=== PATIENT | male | born 1945 | race Caucasian/White ===

== ENCOUNTER 2017-07-15 09:06 | Inpatient (IN) | payer MEDICARE, OTHER ==
[2017-07-06 15:50] LABS: BASOPHILS % (AUTO) 0.2 % (0-1); EOSINOPHILS # (AUTO) 0.3 X10'3 (0-0.9); EOSINOPHILS % (AUTO) 5.5 % (0-6); LYMPHOCYTES # (AUTO) 1.4 X10'3 (1.1-4.8); LYMPHOCYTES % (AUTO) 21.7 % (21-51); MEAN CORPUSCULAR HEMOGLOBIN 30.9 PG (27.0-31.0); MEAN CORPUSCULAR HGB CONC 34.8 % (33.0-36.5); MEAN CORPUSCULAR VOLUME 88.6 FL (78-98); MEAN PLATELET VOLUME 7.6 FL (7.4-10.4); MONOCYTES # (AUTO) 0.8 X10'3 (0-0.9); MONOCYTES % (AUTO) 12.5 % (2-12); NEUTROPHILS # (AUTO) 3.8 X10'3 (1.8-7.7); NEUTROPHILS % (AUTO) 60.1 % (42-75); PRE OP HEMATOCRIT 43.8 % (42.0-52.0); PRE OP HEMOGLOBIN 15.3 g/dL (14.0-17.9); PRE OP PLATELET COUNT 198 X10'3 (140-440); RED BLOOD COUNT 4.94 X10'6 (4.70-6.10); RED CELL DISTRIBUTION WIDTH 13.3 % (11.5-14.5)
[2017-07-06 16:06] LABS: ALBUMIN 3.8 G/DL (3.4-5.0); ALKALINE PHOSPHATASE 89 IU/L (46-116); BLOOD UREA NITROGEN 22 MG/DL (7-18); BUN/CREATININE RATIO 27.5 (5.4-32.0); CALCIUM 9.5 MG/DL (8.5-10.1); CHLORIDE 106 MMOL/L (99-107); PRE OP ALT 33 U/L (30-65); PRE OP ANION GAP 4 (8-16); PRE OP AST 25 U/L (10-37); PRE OP BILIRUB, TOTAL 0.5 MG/DL (0.0-1.0); PRE OP GLUCOSE 116 MG/DL (70-104); PRE OP POTASSIUM 4.2 MMOL/L (3.4-5.1); PRE OP SODIUM 139 MMOL/L (135-145); TOTAL CARBON DIOXIDE 28.6 MMOL/L (24-32); TOTAL PROTEIN 7.5 G/DL (6.4-8.2); eGFR > 90 ML/MIN
[~2017-07-15] VITALS: Ht 185.4 cm; Wt 109.4 kg
[2017-07-15] VITALS (15 sets, daily range): BP systolic 112–139; BP diastolic 62–86
[~2017-07-15 09:06] MED LIST: CHOL2000 PO; EZET1TAB26; GLUC1CAP33 PO; MAGN400C PO; MULT-1085 PO; PRAM0.5T3 PO; SAW/1TAB2 PO; VITA150T; VITA400C65; [UNRECOGNIZED DRUG - CODE] PO; acetaminophen 325mg tablet PO ONE; cefazolin/dext.iso 2gm/50ml 50 ML IV ONE; famotidine 20mg tablet PO ONE; gabapentin 300mg capsule PO ONE; metoclopramide 5 mg/ml inj IV ONE; oxyCODONE SR 10mg (sust. release) tab PO ONE; ringers solution, lacted 1,000 ML IV SCH; tranexamic acid inj. 1,000 MG in normal saline 100ml IV soln 90 ML IV ONE; vancomycin inj 1,500 MG in normal saline 300ml IV soln IV ONE
[2017-07-15] MEDS ORDERED: ketorolac trometh. 30mg/ml inj. ONE (10:26)
[2017-07-15] MEDS ORDERED: vancomycin 1,000mg inj ONE (10:26)
[2017-07-15] MEDS ORDERED: MORPHINE SULFATE/PF 0.5 MG/ML 10ML AMPUL ONE ×2 (10:26→12:03)
[2017-07-15] MEDS ORDERED: ROPIVAcaine 0.5% (5mg/ml) 30ml vial ONE ×2 (10:26→12:40)
[2017-07-15] MEDS ORDERED: clindamycin-Cleocin 900mg/D5W 50 ML IV ONE (10:35)
[2017-07-15] MEDS ORDERED: rocuronium 10mg/ml inj IV ONE (12:43)
[2017-07-15] MEDS ORDERED: LIDOcaine 1%/PF (10mg/ml) 5ml vial ONE (12:44)
[2017-07-15] MEDS ORDERED: propofol inj 20 ML IV ONE (12:44)
[2017-07-15] MEDS ORDERED: sevoflurane 250ml liquid IH ONE (13:45)
[2017-07-15] MEDS ORDERED: fentaNYL/PF 50MCG/1 ML 2ML syringe ONE ×2 (13:50→14:46)
[2017-07-15] MEDS ORDERED: ringers solution, lacted 1,000 ML IV SCH (16:02)
[2017-07-15] MEDS ORDERED: morphine 2 MG/ML inj. syringe IV PRN (16:05)
[2017-07-15] MEDS ORDERED: ondansetron/PF 4mg/2ml inj IV PRN ×2 (16:05→17:10)
[2017-07-15] MEDS ORDERED: HYDROmorphone 1 mg/ml syringe IV PRN ×2 (16:05)
[2017-07-15] MEDS ORDERED: dexamethasone sod phosphate 4mg/ml inj. ONE (16:14)
[2017-07-15] MEDS ORDERED: ePHEDrine 50MG/ML INJ. ONE (16:14)
[2017-07-15] MEDS ORDERED: furosemide 40mg/4ml inj ONE (16:40)
[2017-07-15] MEDS ORDERED: acetaminophen 325mg tablet PO PRN (17:10)
[2017-07-15] MEDS ORDERED: bisacodyl 10mg suppository rectal RC PRN (17:10)
[2017-07-15] MEDS ORDERED: magnesium hydroxide 30ml (MOM) UD suspension PO PRN (17:10)
[2017-07-15] MEDS ORDERED: diphenhydrAMINE 25mg capsule PO PRN ×2 (17:10)
[2017-07-15] MEDS ORDERED: cloNIDine hcl/PF 100mcg/ml inj ONE (17:12)
[2017-07-15] MEDS ORDERED: dexamethasone 4mg/ml inj ONE (17:12)
[2017-07-15] MEDS: acetaminophen 325mg tablet PO SCH (19:57)
[2017-07-15] MEDS: oxyCODONE IR 5mg (immed. release) tablet PO PRN (19:58)
[2017-07-15] MEDS: celeCOXIB 100mg capsule PO SCH (19:58)
[2017-07-15] MEDS ORDERED: tranexamic acid inj. 1,000 MG in normal saline 100ml IV soln 100 ML IV ONE (20:00)
[2017-07-15] MEDS ORDERED: vancomycin/NS 1 GM ADD-VANTAGE 250 ML IV SCH (20:00)
[2017-07-15] MEDS: sennosides 8.6mg tablet PO SCH (20:35)
[2017-07-15] MEDS: gabapentin 300mg capsule PO SCH (20:35)
[2017-07-15] MEDS: potassium cl 20mEq in 1/2 NS 1,000 ML IV SCH (22:02)
[2017-07-16] MEDS: clindamycin-Cleocin 900mg/D5W 50 ML IV SCH ×3 (00:06→16:17)
[2017-07-16] MEDS: potassium cl 20mEq in 1/2 NS 1,000 ML IV SCH ×3 (01:10→16:17)
[2017-07-16 02:33] VITALS: BP 111/72
[2017-07-16] MEDS: acetaminophen 325mg tablet PO SCH ×4 (02:50→20:46)
[2017-07-16] MEDS: oxyCODONE IR 5mg (immed. release) tablet PO PRN ×5 (04:17→22:04)
[2017-07-16 05:00] VITALS: BP 122/64
[2017-07-16 06:20] LABS: BASOPHILS % (AUTO) 0 % (0-1); EOSINOPHILS # (AUTO) 0.1 X10'3 (0-0.9); EOSINOPHILS % (AUTO) 1.2 % (0-6); HEMATOCRIT 34.4 % (42.0-52.0); HEMOGLOBIN 11.9 g/dl (14.0-17.9); LYMPHOCYTES # (AUTO) 0.5 X10'3 (1.1-4.8); LYMPHOCYTES % (AUTO) 4.1 % (21-51); MEAN CORPUSCULAR HEMOGLOBIN 30.9 PG (27.0-31.0); MEAN CORPUSCULAR HGB CONC 34.7 % (33.0-36.5); MEAN CORPUSCULAR VOLUME 89.1 FL (78-98); MEAN PLATELET VOLUME 7.8 FL (7.4-10.4); MONOCYTES # (AUTO) 0.8 X10'3 (0-0.9); MONOCYTES % (AUTO) 7.2 % (2-12); NEUTROPHILS # (AUTO) 9.8 X10'3 (1.8-7.7); NEUTROPHILS % (AUTO) 87.5 % (42-75); PLATELET COUNT 168 X10'3 (140-440); RED BLOOD COUNT 3.86 X10'6 (4.70-6.10); RED CELL DISTRIBUTION WIDTH 13.3 % (11.5-14.5); WHITE BLOOD COUNT 11.2 X10'3 (4.5-11.0)
[2017-07-16 06:51] LABS: ANION GAP 11 (8-16); CHLORIDE 108 MMOL/L (99-107); POTASSIUM 4.5 MMOL/L (3.5-5.1); SODIUM 141 MMOL/L (135-145); TOTAL CARBON DIOXIDE 22.4 MMOL/L (24-32)
[2017-07-16] MEDS: celeCOXIB 100mg capsule PO SCH ×2 (08:53→20:45)
[2017-07-16] MEDS: gabapentin 300mg capsule PO SCH ×3 (08:53→20:47)
[2017-07-16] MEDS: enoxaparin 40mg/0.4ml syringe SQ SCH (08:55)
[2017-07-16 10:00] VITALS: BP 115/56
[2017-07-16 14:00] VITALS: BP 133/63
[2017-07-16 18:36] VITALS: BP 112/56
[2017-07-16] MEDS: pramipexole 0.25mg tablet PO SCH (20:46)
[2017-07-16] MEDS: atorvastatin 10mg tablet PO SCH (20:46)
[2017-07-16] MEDS: sennosides 8.6mg tablet PO SCH (20:46)
[2017-07-16] MEDS ORDERED: BETA PO SCH (21:00)
[2017-07-16] MEDS ORDERED: ezetimibe 10mg tablet PO SCH (21:00)
[2017-07-16] MEDS ORDERED: PYG PO SCH (21:00)
[2017-07-16] MEDS ORDERED: LYC PO SCH (21:00)
[2017-07-16] MEDS ORDERED: VIT E PO SCH (21:00)
[2017-07-16] MEDS ORDERED: SOD SEL PO SCH (21:00)
[2017-07-16] MEDS ORDERED: SAW PO SCH (21:00)
[2017-07-16 22:00] VITALS: BP 128/66
[2017-07-17] MEDS: acetaminophen 325mg tablet PO SCH ×3 (02:00→13:46)
[2017-07-17] MEDS: oxyCODONE IR 5mg (immed. release) tablet PO PRN ×4 (05:35→20:26)
[2017-07-17 05:54] LABS: BASOPHILS % (AUTO) 0.2 % (0-1); EOSINOPHILS # (AUTO) 0.3 X10'3 (0-0.9); HEMATOCRIT 33.2 % (42.0-52.0); HEMOGLOBIN 11.5 g/dl (14.0-17.9); LYMPHOCYTES # (AUTO) 0.6 X10'3 (1.1-4.8); LYMPHOCYTES % (AUTO) 9.7 % (21-51); MEAN CORPUSCULAR HEMOGLOBIN 30.9 PG (27.0-31.0); MEAN CORPUSCULAR HGB CONC 34.6 % (33.0-36.5); MEAN CORPUSCULAR VOLUME 89.5 FL (78-98); MEAN PLATELET VOLUME 7.6 FL (7.4-10.4); MONOCYTES # (AUTO) 0.7 X10'3 (0-0.9); MONOCYTES % (AUTO) 10.8 % (2-12); NEUTROPHILS # (AUTO) 4.5 X10'3 (1.8-7.7); NEUTROPHILS % (AUTO) 74.3 % (42-75); PLATELET COUNT 166 X10'3 (140-440); RED CELL DISTRIBUTION WIDTH 13.6 % (11.5-14.5); WHITE BLOOD COUNT 6.1 X10'3 (4.5-11.0)
[2017-07-17 06:00] VITALS: BP 114/48
[2017-07-17] MEDS: vitamin B comp w/Vit. C tab 1 TAB TABLET PO SCH (07:58)
[2017-07-17] MEDS: celeCOXIB 100mg capsule PO SCH ×2 (07:58→20:26)
[2017-07-17] MEDS: multivitamins, therapeutics tablet PO SCH (07:58)
[2017-07-17] MEDS: vitamin D (cholecalciferol) 1,000 unit tablet PO SCH (07:58)
[2017-07-17] MEDS: magnesium oxide 400mg tablet PO SCH (07:58)
[2017-07-17] MEDS: pramipexole 0.25mg tablet PO SCH ×2 (07:59→20:27)
[2017-07-17] MEDS: vitamin E 400 unit capsule PO SCH (07:59)
[2017-07-17] MEDS ORDERED: vitamin B comp w/Vit. C tab 1 TAB TABLET PO SCH (08:00)
[2017-07-17] MEDS ORDERED: vitamin E 400 unit capsule PO SCH (08:00)
[2017-07-17] MEDS: enoxaparin 40mg/0.4ml syringe SQ SCH (08:00)
[2017-07-17] MEDS: gabapentin 300mg capsule PO SCH ×3 (08:04→20:26)
[2017-07-17 10:11] VITALS: BP 129/52
[2017-07-17] MEDS ORDERED: acetaminophen 325mg tablet PO PRN (17:10)
[2017-07-17 18:00] VITALS: BP 123/71
[2017-07-17] MEDS: atorvastatin 10mg tablet PO SCH (20:26)
[2017-07-17] MEDS: ezetimibe 10mg tablet PO SCH (20:26)
[2017-07-17] MEDS: sennosides 8.6mg tablet PO SCH (20:27)
[2017-07-17] MEDS ORDERED: SOD SEL PO SCH (21:00)
[2017-07-17] MEDS ORDERED: BETA PO SCH (21:00)
[2017-07-17] MEDS ORDERED: SAW PO SCH (21:00)
[2017-07-17] MEDS ORDERED: PYG PO SCH (21:00)
[2017-07-17] MEDS ORDERED: VIT E PO SCH (21:00)
[2017-07-17] MEDS ORDERED: LYC PO SCH (21:00)
[2017-07-17 22:00] VITALS: BP 138/65
[2017-07-18] MEDS: oxyCODONE IR 5mg (immed. release) tablet PO PRN ×5 (05:50→22:25)
[2017-07-18 06:00] VITALS: BP 119/62
[2017-07-18 06:05] LABS: BASOPHILS % (AUTO) 0.3 % (0-1); EOSINOPHILS # (AUTO) 0.6 X10'3 (0-0.9); EOSINOPHILS % (AUTO) 8.3 % (0-6); HEMATOCRIT 35.2 % (42.0-52.0); HEMOGLOBIN 12.1 g/dl (14.0-17.9); LYMPHOCYTES # (AUTO) 0.9 X10'3 (1.1-4.8); LYMPHOCYTES % (AUTO) 11.5 % (21-51); MEAN CORPUSCULAR HEMOGLOBIN 30.9 PG (27.0-31.0); MEAN CORPUSCULAR HGB CONC 34.5 % (33.0-36.5); MEAN CORPUSCULAR VOLUME 89.6 FL (78-98); MEAN PLATELET VOLUME 7.9 FL (7.4-10.4); MONOCYTES # (AUTO) 0.9 X10'3 (0-0.9); MONOCYTES % (AUTO) 11.9 % (2-12); NEUTROPHILS # (AUTO) 5.1 X10'3 (1.8-7.7); PLATELET COUNT 180 X10'3 (140-440); RED BLOOD COUNT 3.93 X10'6 (4.70-6.10); RED CELL DISTRIBUTION WIDTH 13.5 % (11.5-14.5); WHITE BLOOD COUNT 7.5 X10'3 (4.5-11.0)
[2017-07-18] MEDS: vitamin D (cholecalciferol) 1,000 unit tablet PO SCH (07:50)
[2017-07-18] MEDS: vitamin B comp w/Vit. C tab 1 TAB TABLET PO SCH (07:50)
[2017-07-18] MEDS: gabapentin 300mg capsule PO SCH ×3 (07:50→20:50)
[2017-07-18] MEDS: celeCOXIB 100mg capsule PO SCH ×2 (07:50→20:50)
[2017-07-18] MEDS: multivitamins, therapeutics tablet PO SCH (07:50)
[2017-07-18] MEDS: pramipexole 0.25mg tablet PO SCH ×2 (07:50→20:51)
[2017-07-18] MEDS: vitamin E 400 unit capsule PO SCH (07:50)
[2017-07-18] MEDS: enoxaparin 40mg/0.4ml syringe SQ SCH (07:51)
[2017-07-18] MEDS: magnesium oxide 400mg tablet PO SCH (07:52)
[2017-07-18 10:00] VITALS: BP 120/66
[2017-07-18] MEDS ORDERED: ENOX40DI11 SQ (10:40)
[2017-07-18 18:00] VITALS: BP 115/61
[2017-07-18] MEDS: sennosides 8.6mg tablet PO SCH (20:50)
[2017-07-18] MEDS: ezetimibe 10mg tablet PO SCH (20:50)
[2017-07-18] MEDS: atorvastatin 10mg tablet PO SCH (20:50)
[2017-07-18 22:00] VITALS: BP 132/69
[2017-07-19] MEDS: oxyCODONE IR 5mg (immed. release) tablet PO PRN (02:50)
[2017-07-19 07:00] VITALS: BP 129/66
[2017-07-19] MEDS: celeCOXIB 100mg capsule PO SCH (08:06)
[2017-07-19] MEDS: pramipexole 0.25mg tablet PO SCH (08:06)
[2017-07-19] MEDS: magnesium oxide 400mg tablet PO SCH (08:07)
[2017-07-19] MEDS: gabapentin 300mg capsule PO SCH (08:07)
[2017-07-19] MEDS: vitamin B comp w/Vit. C tab 1 TAB TABLET PO SCH (08:07)
[2017-07-19] MEDS: multivitamins, therapeutics tablet PO SCH (08:07)
[2017-07-19] MEDS: vitamin D (cholecalciferol) 1,000 unit tablet PO SCH (08:07)
[2017-07-19] MEDS: vitamin E 400 unit capsule PO SCH (08:07)
[2017-07-19 11:00] VITALS: BP 135/72
[2017-07-20] MEDS ORDERED: CEPH500C5 PO (14:37)
== END 2017-07-19 14:05 | disposition home or self-care (01) | DRG 467 ==
LOC: PAS IN 09:06 → EDSTATUS 13:00 → ORTHO 4S 18:45
PROVIDERS: ADMIT Orthopaedic Surgery; ATTEND Orthopaedic Surgery
PROC: 0SRC069 Replacement of Right Knee Joint with Oxidized Zirconium on Polyethylene Synthetic Substitute, Cemented, Open Approach (ICD-10-PCS; 2017-07-15)
PROC: 8E0Y0CZ Robotic Assisted Procedure of Lower Extremity, Open Approach (ICD-10-PCS; 2017-07-15)
PROC: 0SPC0JZ Removal of Synthetic Substitute from Right Knee Joint, Open Approach (ICD-10-PCS; principal; 2017-07-15 13:40)
DX: T84.032A Mechanical loosening of internal right knee prosthetic joint, initial encounter (principal); D62 Acute posthemorrhagic anemia; M17.11 Unilateral primary osteoarthritis, right knee; M65.9 Synovitis and tenosynovitis, unspecified; G25.81 Restless legs syndrome; Y82.8 Other medical devices associated with adverse incidents; Y92.89 Other specified places as the place of occurrence of the external cause
CPT/HCPCS: 36415; 73560; 80051; 80053; 85025; 87070; 97110; 97116; 97161; 97530; 97535; A6253; A6255; A6449; A6455; A7000; C1713; C1758; C1776; C9250; J0690; J0735; J1100; J1650; J1885; J1940; J2001; J2270; J2274; J2704; J2765; J2795; J3010; J3370; J3490; J7030; J7120; Q0163

== ENCOUNTER 2017-07-20 11:24 | Emergency (ER) | payer MEDICARE, OTHER ==
[~2017-07-20] VITALS: Ht 185.4 cm; Wt 109.0 kg
[~2017-07-20 11:24] MED LIST changes: +ENOX40DI11 SQ; -acetaminophen 325mg tablet PO ONE; -cefazolin/dext.iso 2gm/50ml 50 ML IV ONE; -famotidine 20mg tablet PO ONE; -gabapentin 300mg capsule PO ONE; -metoclopramide 5 mg/ml inj IV ONE; -oxyCODONE SR 10mg (sust. release) tab PO ONE; -ringers solution, lacted 1,000 ML IV SCH; -tranexamic acid inj. 1,000 MG in normal saline 100ml IV soln 90 ML IV ONE; -vancomycin inj 1,500 MG in normal saline 300ml IV soln IV ONE
[2017-07-20 12:55] LABS: BASOPHILS % (AUTO) 0.2 % (0-1); EOSINOPHILS # (AUTO) 0.5 X10'3 (0-0.9); EOSINOPHILS % (AUTO) 6.6 % (0-6); HEMATOCRIT 37.4 % (42.0-52.0); LYMPHOCYTES # (AUTO) 0.9 X10'3 (1.1-4.8); LYMPHOCYTES % (AUTO) 13.1 % (21-51); MEAN CORPUSCULAR HEMOGLOBIN 30.8 PG (27.0-31.0); MEAN CORPUSCULAR HGB CONC 34.7 % (33.0-36.5); MEAN CORPUSCULAR VOLUME 88.6 FL (78-98); MEAN PLATELET VOLUME 7.4 FL (7.4-10.4); MONOCYTES # (AUTO) 1.2 X10'3 (0-0.9); MONOCYTES % (AUTO) 16.9 % (2-12); NEUTROPHILS # (AUTO) 4.4 X10'3 (1.8-7.7); NEUTROPHILS % (AUTO) 63.2 % (42-75); PLATELET COUNT 216 X10'3 (140-440); RED BLOOD COUNT 4.22 X10'6 (4.70-6.10); RED CELL DISTRIBUTION WIDTH 13.4 % (11.5-14.5)
[2017-07-20 13:13] LABS: ALANINE AMINOTRANSFERASE 69 U/L (12-78); ALBUMIN 3.1 G/DL (3.4-5.0); ALBUMIN/GLOBULIN RATIO 0.7 (1.1-1.5); ALKALINE PHOSPHATASE 172 IU/L (46-116); ANION GAP 7 (8-16); ASPARTATE AMINO TRANSFERASE 51 U/L (10-37); BILIRUBIN,TOTAL 0.8 MG/DL (0.1-1.0); BLOOD UREA NITROGEN 23 MG/DL (7-18); BUN/CREATININE RATIO 27.1 (5.4-32.0); CALCIUM 9.1 MG/DL (8.5-10.1); CHLORIDE 104 MMOL/L (99-107); CREATININE 0.85 MG/DL (0.60-1.10); GLUCOSE 82 MG/DL (70-104); POTASSIUM 4.1 MMOL/L (3.5-5.1); SODIUM 139 MMOL/L (135-145); TOTAL PROTEIN 7.4 G/DL (6.4-8.2); eGFR 89 ML/MIN
[2017-07-20] MEDS ORDERED: CEPH500C5 PO (14:37)
[2017-07-20] MEDS ORDERED: morphine 5 MG/ML injection IV ONE (15:05)
[2017-07-20 16:15] VITALS: BP 115/70
== END 2017-07-20 16:16 | disposition home or self-care (01) ==
LOC: ER 11:24
DX: L03.115 Cellulitis of right lower limb (principal); I77.6 Arteritis, unspecified; G89.29 Other chronic pain; Z98.890 Other specified postprocedural states; Z88.0 Allergy status to penicillin; Z79.899 Other long term (current) drug therapy
CPT/HCPCS: 36415; 80053; 85025; 85651; 86140; 93971; 96374; 99285; A6255; A6446; A6449

== ENCOUNTER 2018-03-09 15:39 | Emergency (ER) | payer MEDICARE, OTHER ==
[~2018-03-09] VITALS: Ht 185.4 cm; Wt 113.0 kg
[~2018-03-09 15:39] MED LIST changes: +CEPH500C5 PO
[2018-03-09 15:42] VITALS: BP 140/78
== END 2018-03-09 16:29 | disposition home or self-care (01) ==
LOC: ER 15:39
DX: S91.312A Laceration without foreign body, left foot, initial encounter (principal); G89.29 Other chronic pain; Z91.040 Latex allergy status; Z88.0 Allergy status to penicillin; Z88.8 Allergy status to other drugs, medicaments and biological substances; Z79.2 Long term (current) use of antibiotics; Z79.899 Other long term (current) drug therapy; X58.XXXA Exposure to other specified factors, initial encounter; Y93.89 Activity, other specified; Y92.89 Other specified places as the place of occurrence of the external cause; Y99.8 Other external cause status
CPT/HCPCS: 12001; 99283

== ENCOUNTER 2021-08-19 14:15 | Inpatient (IN) | payer MEDICARE, OTHER ==
[~2021-08-19] VITALS: Ht 185.4 cm; Wt 102.0 kg
[~2021-08-19 14:15] MED LIST changes: -CEPH500C5 PO; -ENOX40DI11 SQ; -EZET1TAB26; -PRAM0.5T3 PO; +VITA-134 PO; -VITA150T; +VITA150T PO; -VITA400C65; -[UNRECOGNIZED DRUG - CODE] PO
[2021-09-25] MEDS ORDERED: TURM500C4 PO (11:22)
[2021-09-25] MEDS ORDERED: LIPA1CAP18 PO (11:22)
[2021-09-25] MEDS ORDERED: MELA10TA PO (11:22)
[2021-09-25] MEDS ORDERED: LORA10CA PO (11:22)
[2021-09-25] MEDS ORDERED: EZET10TA48 PO (11:22)
[2021-09-25] MEDS ORDERED: SIMV10TA98 PO (11:22)
[2021-09-25] MEDS ORDERED: FLO0.4C PO (11:22)
[2021-09-25] MEDS ORDERED: KRIL1CAP21 PO (11:22)
[2021-09-25] MEDS ORDERED: VIT1LOZE5 (11:22)
[2021-09-25 11:50] LABS: BASOPHILS % (AUTO) 0.5 % (0-1); EOSINOPHILS # (AUTO) 0.2 X10'3 (0-0.9); EOSINOPHILS % (AUTO) 3.5 % (0-6); LYMPHOCYTES # (AUTO) 1.1 X10'3 (1.1-4.8); LYMPHOCYTES % (AUTO) 23.8 % (21-51); MEAN CORPUSCULAR HGB CONC 33.1 g/dL (33.0-36.5); MEAN CORPUSCULAR VOLUME 90.6 FL (78-98); MEAN PLATELET VOLUME 7.6 FL (7.4-10.4); MONOCYTES # (AUTO) 0.6 X10'3 (0-0.9); MONOCYTES % (AUTO) 12.7 % (2-12); NEUTROPHILS # (AUTO) 2.9 X10'3 (1.8-7.7); NEUTROPHILS % (AUTO) 59.5 % (42-75); PRE OP HEMATOCRIT 39.5 % (42.0-52.0); PRE OP HEMOGLOBIN 13.1 g/dL (14.0-17.9); PRE OP PLATELET COUNT 222 X10'3 (140-440); RED BLOOD COUNT 4.37 X10'6 (4.70-6.10)
[2021-09-25 12:31] LABS: ALBUMIN 3.7 G/DL (3.4-5.0); ALBUMIN/GLOBULIN RATIO 1.2 (1.1-1.5); ALKALINE PHOSPHATASE 75 IU/L (46-116); BLOOD UREA NITROGEN 21 MG/DL (7-18); BUN/CREATININE RATIO 25.3 (5.4-32.0); CALCIUM 8.8 MG/DL (8.5-10.1); CHLORIDE 108 MMOL/L (99-107); CREATININE 0.83 MG/DL (0.60-1.10); PRE OP ALT 24 U/L (30-65); PRE OP ANION GAP 8 (8-16); PRE OP AST 24 U/L (10-37); PRE OP BILIRUB, TOTAL 0.6 MG/DL (0.0-1.0); PRE OP GLUCOSE 103 MG/DL (70-104); PRE OP POTASSIUM 4.1 MMOL/L (3.4-5.1); PRE OP SODIUM 142 MMOL/L (135-145); TOTAL CARBON DIOXIDE 25.8 MMOL/L (24-32); TOTAL PROTEIN 6.9 G/DL (6.4-8.2); eGFR 90 ML/MIN
[2021-09-30] MEDS ORDERED: PRAM0.253 PO (11:02)
[2021-09-30] MEDS ORDERED: ELUX75TA PO (12:41)
[2021-10-01] VITALS (18 sets, daily range): BP systolic 116–135; BP diastolic 54–77
[2021-10-01] MEDS ORDERED: ringers solution, lacted 1,000 ML IV SCH ×2 (05:00→15:50)
[2021-10-01] MEDS ORDERED: tranexamic acid 650mg tablet PO ONE (05:30)
[2021-10-01] MEDS ORDERED: vancomycin 1,500 MG in NS 300ml IV soln IV ONE (05:30)
[2021-10-01] MEDS ORDERED: famotidine 20mg tablet PO ONE (05:30)
[2021-10-01] MEDS ORDERED: cefazolin/dext.iso 2gm/50ml IV ONE (05:30)
--- NOTE | 2021-10-01 11:31 | NUR ---
CSM INTACT, PATIENT JOINT CARE VIDEO AND VERBALIZED UNDERSTANDING.
[2021-10-01] MEDS ORDERED: ROPIVAcaine 0.5% (5mg/ml) 30ml vial ONE ×2 (13:13→13:46)
[2021-10-01] MEDS ORDERED: ketorolac trometh. 30mg/ml inj. ONE (13:13)
[2021-10-01] MEDS ORDERED: midazolam 1 mg/ML 2ml injection ONE (13:45)
[2021-10-01] MEDS ORDERED: fentaNYL/PF 50MCG/1 ML 2ML syringe ONE (13:45)
[2021-10-01] MEDS ORDERED: LIDOCAINE 1% w/preservative (10 MG/ML) inj. 10mL VIAL ONE (14:03)
[2021-10-01] MEDS ORDERED: sevoflurane 250ml liquid IH ONE (14:03)
[2021-10-01] MEDS ORDERED: propofol inj 20 ML IV ONE (14:12)
[2021-10-01] MEDS ORDERED: dexamethasone sod phosphate 4mg/ml inj. ONE (15:02)
[2021-10-01] MEDS ORDERED: ePHEDrine 50MG/ML INJ. ONE (15:03)
[2021-10-01] MEDS ORDERED: ondansetron/PF 4mg/2ml inj ONE (15:03)
[2021-10-01] MEDS ORDERED: proCHLORperazine 10 MG/2 ml inj IV PRN (15:50)
[2021-10-01] MEDS ORDERED: meperidine/PF 25mg/ml syringe IV PRN ×3 (15:50)
[2021-10-01] MEDS ORDERED: morphine 2 MG/ML inj. syringe IV PRN (15:50)
[2021-10-01] MEDS ORDERED: ROPIVAcaine 0.2%/PF PUMP/bolus 545 ML INTERSCALE SCH (15:50)
[2021-10-01] MEDS ORDERED: ondansetron/PF 4mg/2ml inj IV PRN ×2 (15:50→16:45)
[2021-10-01] MEDS ORDERED: morphine 4 MG/ML inj SYRINge IV PRN (15:50)
[2021-10-01] MEDS ORDERED: ROPIVAcaine 0.2% (10 MG/5 ML) BOLUS INJECTION INTERSCALE PRN (15:50)
--- NOTE | 2021-10-01 16:29 | NUR ---
Received from OR via hospital bed, accompanied by Anesthesiologist DR HUERTA and report given by Anesthesiolgist. PT PRESENTS WITH 20G LEFT FOREARM, [id number] SHOULDER WRAP WITH ISLAND DRESSING, POWDER PACK AND ON-Q ADRIANNE BAIRD. Addendum: 10/01/21 at 1638 by Sayda Boyer RN, RN Amended: Links added.
[2021-10-01] MEDS ORDERED: magnesium hydroxide 30ml (MOM) UD suspension PO PRN (16:45)
[2021-10-01] MEDS ORDERED: oxyCODONE IR 5mg (immed. release) tablet PO PRN (16:45)
[2021-10-01] MEDS ORDERED: diphenhydrAMINE 25mg capsule PO PRN ×2 (16:45)
[2021-10-01] MEDS ORDERED: HYDROmorphone 1 mg/ml syringe IV PRN (16:45)
[2021-10-01] MEDS ORDERED: acetaminophen 325mg tablet PO PRN (16:45)
[2021-10-01] MEDS ORDERED: HYDROcodone/acetaminophen 10/325mg tab PO PRN (16:45)
[2021-10-01] MEDS ORDERED: naloxone 0.4 mg/ml inj IV PRN (16:45)
[2021-10-01] MEDS ORDERED: HYDROmorphone inj. 0.5 MG/0.5 ML DISP.SYRIN IV PRN (16:45)
[2021-10-01] MEDS ORDERED: bisacodyl 10mg suppository rectal RC PRN (16:45)
--- NOTE | 2021-10-01 17:49 | NUR ---
PT DOING WELL, VSS, DENIES PAIN, ABLE TO MOVE FINGERS, PINK AND WARM, PULSES PRESENT-BLOCK STILL WORKING, ARM IN SLING, ON-Q ATTACHED-PT EDUCATED ON USE, SCDS ON, TOLERATING FLUIDS-READY FOR DINNER, SHOULDER WRAP WITH ICE PACK IN PLACE-CDI, NO OTHER CHANGES IN ASSESSMENT, REPORT CALLED TO YADIRA MCDANIEL-ALL QUESTIONS ANSWERED, TAKEN WITH ALL BELONGINGS TO ROOM 4024A-HOOKED UP TO MONITORS, CALL LIGHT IN REACH, BED LOW AND LOCKED, RN AWARE OF ARRIVAL.
--- NOTE | 2021-10-01 18:15 | NUR ---
Gave report to VIOLETA Adame
[2021-10-01] MEDS: magnesium oxide 400mg tablet PO SCH (19:28)
[2021-10-01] MEDS: acetaminophen 325mg tablet PO SCH (19:33)
[2021-10-01] MEDS: cholecalciferol (vitamin D3) 1,000 unit (25mcg) tablet PO SCH (19:34)
[2021-10-01] MEDS: potassium cl 20mEq in 1/2 NS 1,000 ML IV SCH (19:44)
[2021-10-01] MEDS ORDERED: CHONDROITIN SULFATE A PO SCH (20:00)
[2021-10-01] MEDS ORDERED: GLUC SU PO SCH (20:00)
[2021-10-01] MEDS ORDERED: vancomycin/NS 1 GM ADD-VANTAGE 250 ML IV SCH (20:00)
[2021-10-01] MEDS: LIPASE/PROTEASE/AMYLASE 4,200 unit CAPSULE.DR PO SCH (20:43)
[2021-10-01] MEDS: LIPASE/PROTEASE/AMYLASE 16,800 UNIT CAPSULE.DR PO SCH (20:43)
[2021-10-01] MEDS: Melatonin 3mg tablet PO SCH (20:45)
[2021-10-01] MEDS: sennosides 8.6mg tablet PO SCH (20:46)
[2021-10-01] MEDS: pramipexole 0.25mg tablet PO SCH (20:50)
[2021-10-01] MEDS ORDERED: BETA PO SCH (21:00)
[2021-10-01] MEDS ORDERED: VIT E PO SCH (21:00)
[2021-10-01] MEDS ORDERED: PYG PO SCH (21:00)
[2021-10-01] MEDS ORDERED: SOD SEL PO SCH (21:00)
[2021-10-01] MEDS ORDERED: pramipexole 0.25mg tablet PO SCH (21:00)
[2021-10-01] MEDS ORDERED: LYC PO SCH (21:00)
[2021-10-01] MEDS ORDERED: SAW PO SCH (21:00)
[2021-10-02] MEDS: ceFAZolin/D5W- 1GM premix 50 ML IV SCH ×2 (00:47→08:27)
[2021-10-02] MEDS: potassium cl 20mEq in 1/2 NS 1,000 ML IV SCH ×3 (00:49→16:45)
[2021-10-02] MEDS: acetaminophen 325mg tablet PO SCH ×4 (01:58→20:39)
[2021-10-02 02:00] VITALS: BP 123/62
--- NOTE | 2021-10-02 06:19 | NUR ---
Received report from Wendi MCDANIEL
[2021-10-02 06:38] VITALS: BP 104/56
[2021-10-02 06:57] LABS: BASOPHILS % (AUTO) 0.1 % (0-1); EOSINOPHILS % (AUTO) 0 % (0-6); HEMATOCRIT 36.1 % (42.0-52.0); HEMOGLOBIN 12.2 g/dl (14.0-17.9); LYMPHOCYTES # (AUTO) 0.5 X10'3 (1.1-4.8); MEAN CORPUSCULAR HEMOGLOBIN 30.7 PG (27.0-31.0); MEAN CORPUSCULAR HGB CONC 33.9 g/dL (33.0-36.5); MEAN CORPUSCULAR VOLUME 90.5 FL (78-98); MEAN PLATELET VOLUME 8.3 FL (7.4-10.4); MONOCYTES # (AUTO) 0.4 X10'3 (0-0.9); MONOCYTES % (AUTO) 4.8 % (2-12); NEUTROPHILS # (AUTO) 7.1 X10'3 (1.8-7.7); NEUTROPHILS % (AUTO) 89.1 % (42-75); PLATELET COUNT 175 X10'3 (140-440); RED BLOOD COUNT 3.99 X10'6 (4.70-6.10); RED CELL DISTRIBUTION WIDTH 13.5 % (11.5-14.5)
[2021-10-02 07:11] LABS: ANION GAP 9 (8-16); CHLORIDE 108 MMOL/L (99-107); POTASSIUM 4.5 MMOL/L (3.5-5.1); SODIUM 141 MMOL/L (135-145); TOTAL CARBON DIOXIDE 23.6 MMOL/L (24-32)
[2021-10-02] MEDS ORDERED: DHA PO SCH (08:00)
[2021-10-02] MEDS ORDERED: KRILL PO SCH (08:00)
[2021-10-02] MEDS ORDERED: PHOSPHO PO SCH (08:00)
[2021-10-02] MEDS ORDERED: AST PO SCH (08:00)
[2021-10-02] MEDS ORDERED: [UNRECOGNIZED DRUG - OTHER] PO SCH (08:00)
[2021-10-02] MEDS ORDERED: EPA PO SCH (08:00)
[2021-10-02] MEDS: vitamin B comp w/Vit. C tab 1 TAB TABLET PO SCH (08:27)
[2021-10-02] MEDS: aspirin 325mg tablet PO SCH (08:27)
[2021-10-02] MEDS: multivitamins, therapeutics tablet PO SCH (08:28)
[2021-10-02] MEDS: cholecalciferol (vitamin D3) 1,000 unit (25mcg) tablet PO SCH ×2 (08:28→20:38)
[2021-10-02] MEDS: LIPASE/PROTEASE/AMYLASE 16,800 UNIT CAPSULE.DR PO SCH ×3 (08:29→20:34)
[2021-10-02] MEDS: ezetimibe 10mg tablet PO SCH (08:29)
[2021-10-02] MEDS: atorvastatin 10mg tablet PO SCH (08:29)
[2021-10-02] MEDS: LIPASE/PROTEASE/AMYLASE 4,200 unit CAPSULE.DR PO SCH ×3 (08:30→20:34)
[2021-10-02] MEDS: magnesium oxide 400mg tablet PO SCH ×2 (08:30→20:35)
[2021-10-02] MEDS: loratadine 10mg tablet PO SCH (08:31)
[2021-10-02] MEDS: tamsulosin 0.4mg capsule PO SCH (08:31)
[2021-10-02 10:45] VITALS: BP 120/50
[2021-10-02 14:46] VITALS: BP 126/54
[2021-10-02] MEDS: oxyCODONE IR 5mg (immed. release) tablet PO PRN ×2 (16:48→22:28)
[2021-10-02 18:00] VITALS: BP 157/66
--- NOTE | 2021-10-02 18:32 | NUR ---
Report given to VIOLETA Adame
[2021-10-02] MEDS: ELUXADOLINE PO SCH (20:00)
[2021-10-02] MEDS: celeCOXIB 100mg capsule PO SCH (20:35)
[2021-10-02] MEDS: sennosides 8.6mg tablet PO SCH (20:37)
[2021-10-02] MEDS: pramipexole 0.25mg tablet PO SCH (20:38)
[2021-10-02] MEDS: Melatonin 3mg tablet PO SCH (20:39)
[2021-10-02 22:00] VITALS: BP 123/57
[2021-10-03] MEDS: acetaminophen 325mg tablet PO SCH ×3 (02:30→14:00)
[2021-10-03] MEDS: oxyCODONE IR 5mg (immed. release) tablet PO PRN (05:20)
[2021-10-03 06:17] VITALS: BP 131/64
--- NOTE | 2021-10-03 06:17 | NUR ---
Received report from VIOLETA Adame
[2021-10-03 06:36] LABS: BASOPHILS % (AUTO) 0.4 % (0-1); EOSINOPHILS % (AUTO) 0.5 % (0-6); HEMATOCRIT 36.8 % (42.0-52.0); HEMOGLOBIN 12.5 g/dl (14.0-17.9); LYMPHOCYTES # (AUTO) 1.3 X10'3 (1.1-4.8); LYMPHOCYTES % (AUTO) 14.3 % (21-51); MEAN CORPUSCULAR HEMOGLOBIN 31.1 PG (27.0-31.0); MEAN CORPUSCULAR HGB CONC 33.9 g/dL (33.0-36.5); MEAN CORPUSCULAR VOLUME 91.5 FL (78-98); MEAN PLATELET VOLUME 8.3 FL (7.4-10.4); MONOCYTES # (AUTO) 1.1 X10'3 (0-0.9); MONOCYTES % (AUTO) 11.8 % (2-12); NEUTROPHILS # (AUTO) 6.6 X10'3 (1.8-7.7); PLATELET COUNT 207 X10'3 (140-440); RED BLOOD COUNT 4.03 X10'6 (4.70-6.10); RED CELL DISTRIBUTION WIDTH 13.5 % (11.5-14.5); WHITE BLOOD COUNT 9.1 X10'3 (4.5-11.0)
[2021-10-03] MEDS: tamsulosin 0.4mg capsule PO SCH (07:45)
[2021-10-03] MEDS: loratadine 10mg tablet PO SCH (07:45)
[2021-10-03] MEDS: celeCOXIB 100mg capsule PO SCH (07:45)
[2021-10-03] MEDS: atorvastatin 10mg tablet PO SCH (07:46)
[2021-10-03] MEDS: LIPASE/PROTEASE/AMYLASE 4,200 unit CAPSULE.DR PO SCH ×2 (07:49→12:52)
[2021-10-03] MEDS: LIPASE/PROTEASE/AMYLASE 16,800 UNIT CAPSULE.DR PO SCH ×2 (07:49→12:52)
[2021-10-03] MEDS: magnesium oxide 400mg tablet PO SCH (07:50)
[2021-10-03] MEDS: vitamin B comp w/Vit. C tab 1 TAB TABLET PO SCH (07:52)
[2021-10-03] MEDS: multivitamins, therapeutics tablet PO SCH (07:53)
[2021-10-03] MEDS: cholecalciferol (vitamin D3) 1,000 unit (25mcg) tablet PO SCH (07:53)
[2021-10-03] MEDS: ezetimibe 10mg tablet PO SCH (07:54)
[2021-10-03] MEDS: aspirin 325mg tablet PO SCH (07:55)
[2021-10-03] MEDS: ELUXADOLINE PO SCH (07:56)
[2021-10-03 10:00] VITALS: BP 115/55
--- NOTE | 2021-10-03 11:33 | NUR ---
Placed call to Dr. Sandoval regarding discharge, he did not respond. Voicemail left
--- NOTE | 2021-10-03 15:27 | NUR ---
Patient discharged to home via wheelchair to private vehicle. All discharge instructions given to both patient and which included medications, wound care and follow up. They both voiced understanding of all instructions given to them. 18 gauge IV removed from left arm cannula intact no complications. Patient is to follow up in office with Dr. Sandoval and was set up with medications prior to elective surgery.
[2021-10-03] MEDS ORDERED: acetaminophen 325mg tablet PO PRN (16:45)
== END 2021-10-03 15:05 | disposition home or self-care (01) | DRG 483 ==
LOC: PAS IN 10-01 10:35 → ORTHO 4S 10-01 18:02
PROVIDERS: ADMIT Orthopaedic Surgery; ATTEND Orthopaedic Surgery
PROC: 0LS30ZZ Reposition Right Upper Arm Tendon, Open Approach (ICD-10-PCS; 2021-10-01)
PROC: 3E0T3BZ Introduction of Anesthetic Agent into Peripheral Nerves and Plexi, Percutaneous Approach (ICD-10-PCS; 2021-10-01)
PROC: 3E0T33Z Introduction of Anti-inflammatory into Peripheral Nerves and Plexi, Percutaneous Approach (ICD-10-PCS; 2021-10-01)
PROC: 0RRJ00Z Replacement of Right Shoulder Joint with Reverse Ball and Socket Synthetic Substitute, Open Approach (ICD-10-PCS; principal; 2021-10-01 14:03)
DX: M19.011 Primary osteoarthritis, right shoulder (principal); M65.811 Other synovitis and tenosynovitis, right shoulder; M75.101 Unspecified rotator cuff tear or rupture of right shoulder, not specified as traumatic
CPT/HCPCS: 36415; 80051; 80053; 82948; 85025; 87081; 97110; 97161; 97530; A4618; A7000; C1776; G0378; J0690; J1100; J1885; J2250; J2405; J2704; J2795; J3010; J3370; J3480; J3490; J7040; J7120; Q0163; U0003; U0005

== ENCOUNTER 2023-05-22 20:16 | Inpatient (IN) | payer MEDICARE, OTHER ==
[~2023-05-22] VITALS: Ht 185.4 cm; Wt 90.0 kg
[~2023-05-22 20:16] MED LIST changes: +ASPI-1174 PO; +CEPH-585 PO; +CIPR750T14 PO; +EZET10TA48 PO; +FLO0.4C PO; +GUAI120L55 PO; +KRIL1CAP21 PO; +LIPA1CAP18 PO; +LORA10CA PO; +MELATONIN10 MG PO; +METH-797 PO; +METR-159 PO; +OMEP40CA21 PO; +ONDA-103 PO; +OXYC5TAB2; +PRAM0.253 PO; +SIMV10TA98 PO; +SULF1TAB45 PO; +TRIA15CR62 TOP; +TURM500C4 PO; +VIT1LOZE5; -VITA-134 PO; +VITA-288 PO
[2023-05-22] MEDS ORDERED: temazepam 15mg capsule PO PRN (21:00)
[2023-05-22 21:52] LABS: BASOPHILS # (AUTO) 0.1 X10'3 (0-0.2); BASOPHILS % (AUTO) 1.7 % (0-1); EOSINOPHILS # (AUTO) 0.5 X10'3 (0-0.9); EOSINOPHILS % (AUTO) 7.7 % (0-6); HEMOGLOBIN 7.1 g/dl (14.0-17.9); LYMPHOCYTES % (AUTO) 15.1 % (21-51); MEAN CORPUSCULAR HEMOGLOBIN 30.7 PG (27.0-31.0); MEAN CORPUSCULAR HGB CONC 33.4 g/dL (33.0-36.5); MEAN CORPUSCULAR VOLUME 91.9 FL (78-98); MEAN PLATELET VOLUME 6.3 FL (7.4-10.4); MONOCYTES # (AUTO) 0.6 X10'3 (0-0.9); MONOCYTES % (AUTO) 9.5 % (2-12); NEUTROPHILS # (AUTO) 4.5 X10'3 (1.8-7.7); PLATELET COUNT 340 X10'3 (140-440); RED CELL DISTRIBUTION WIDTH 15.6 % (11.5-14.5); WHITE BLOOD COUNT 6.8 X10'3 (4.5-11.0)
[2023-05-22 21:55] LABS: ALANINE AMINOTRANSFERASE 23 U/L (12-78); ALBUMIN 2.1 G/DL (3.4-5.0); ALBUMIN/GLOBULIN RATIO 0.4 (1.1-1.5); ALKALINE PHOSPHATASE 140 IU/L (46-116); ANION GAP 8 (8-16); ASPARTATE AMINO TRANSFERASE 25 U/L (10-37); BILIRUBIN,TOTAL 0.2 MG/DL (0.1-1.0); BLOOD UREA NITROGEN 18 MG/DL (7-18); BUN/CREATININE RATIO 18.2 (10.0-20.0); CALCIUM 8.6 MG/DL (8.5-10.1); CHLORIDE 103 MMOL/L (99-107); CREATININE 0.99 MG/DL (0.60-1.10); GLUCOSE 133 MG/DL (70-104); POTASSIUM 3.7 MMOL/L (3.5-5.1); SODIUM 140 MMOL/L (135-145); TOTAL CARBON DIOXIDE 29.5 MMOL/L (24-32); TOTAL PROTEIN 7.4 G/DL (6.4-8.2); eCRCL 70 ML/MIN; eGFR 73 ML/MIN
[2023-05-22 21:59] LABS: HEMATOCRIT 21.1 % (42.0-52.0)
[2023-05-22] MEDS ORDERED: morphine 2 MG/ML inj. syringe IV PRN (22:35)
[2023-05-22] MEDS ORDERED: acetaminophen 650mg rectal suppository RC PRN (22:35)
[2023-05-22] MEDS ORDERED: diphenhydrAMINE 50 mg/ml inj IV PRN (22:35)
[2023-05-22] MEDS: normal saline 1000ml 1,000 ML IV SCH (22:35)
[2023-05-22] MEDS ORDERED: diphenhydrAMINE 25mg capsule PO PRN (22:35)
[2023-05-22] MEDS ORDERED: ondansetron 4mg rapidly disintigrating tab PO PRN (22:35)
[2023-05-22] MEDS ORDERED: magnesium hydroxide 30ml (MOM) UD suspension PO PRN (22:35)
[2023-05-22] MEDS ORDERED: bisacodyl 10mg suppository rectal RC PRN (22:35)
[2023-05-22] MEDS ORDERED: mag hydrox/Alum hydrox/simeth 30ml oral suspension PO PRN (22:35)
[2023-05-22] MEDS ORDERED: ondansetron/PF 4mg/2ml inj IV PRN (22:35)
[2023-05-22] MEDS ORDERED: acetaminophen 325mg tablet PO PRN ×2 (22:35)
[2023-05-22 23:00] LABS: APTT 27 SECONDS (22-32); PROTHROMBIN TIME 10.7 SECONDS (9.0-12.0)
[2023-05-22 23:18] LABS: MAGNESIUM 1.9 MG/DL (1.5-2.4); PRO BRAIN NATRIURETIC PEPTIDE 87 PG/ML (0-450)
[2023-05-22] MEDS ORDERED: SENN-263 PO (23:35)
[2023-05-22] MEDS ORDERED: TEMA15CA5 PO (23:35)
[2023-05-22] MEDS ORDERED: PANT-47 PO (23:35)
[2023-05-22] MEDS ORDERED: VANC1FRO2 (23:35)
[2023-05-23] VITALS (10 sets, daily range): BP systolic 118–136; BP diastolic 54–68; PULSE 83–90; RESP 14–19; TEMP 97.4–98.8; O2SAT 96–98
[2023-05-23] MEDS: HYDROcodone/acetaminophen 5mg/325mg tablet PO PRN ×2 (01:39→22:38)
[2023-05-23] MEDS: pantoprazole 40MG/NS 100ML BAG 100 ML IV SCH ×5 (03:07→21:32)
[2023-05-23] MEDS: normal saline 1000ml 1,000 ML IV SCH ×3 (05:15→18:35)
[2023-05-23 06:21] LABS: BASOPHILS % (AUTO) 0.6 % (0-1); EOSINOPHILS # (AUTO) 0.5 X10'3 (0-0.9); EOSINOPHILS % (AUTO) 7.2 % (0-6); HEMATOCRIT 24.3 % (42.0-52.0); HEMOGLOBIN 8.2 g/dl (14.0-17.9); LYMPHOCYTES # (AUTO) 1.1 X10'3 (1.1-4.8); LYMPHOCYTES % (AUTO) 15.4 % (21-51); MEAN CORPUSCULAR HGB CONC 33.8 g/dL (33.0-36.5); MEAN CORPUSCULAR VOLUME 91.6 FL (78-98); MEAN PLATELET VOLUME 7.3 FL (7.4-10.4); MONOCYTES # (AUTO) 0.8 X10'3 (0-0.9); MONOCYTES % (AUTO) 11.1 % (2-12); NEUTROPHILS # (AUTO) 4.8 X10'3 (1.8-7.7); NEUTROPHILS % (AUTO) 65.7 % (42-75); PLATELET COUNT 325 X10'3 (140-440); RED BLOOD COUNT 2.65 X10'6 (4.70-6.10); WHITE BLOOD COUNT 7.3 X10'3 (4.5-11.0)
[2023-05-23 06:36] LABS: ALANINE AMINOTRANSFERASE 23 U/L (12-78); ALBUMIN 2.2 G/DL (3.4-5.0); ALBUMIN/GLOBULIN RATIO 0.4 (1.1-1.5); ALKALINE PHOSPHATASE 135 IU/L (46-116); ANION GAP 6 (8-16); ASPARTATE AMINO TRANSFERASE 25 U/L (10-37); BILIRUBIN,TOTAL 0.5 MG/DL (0.1-1.0); BLOOD UREA NITROGEN 16 MG/DL (7-18); BUN/CREATININE RATIO 16.7 (10.0-20.0); CALCIUM 8.7 MG/DL (8.5-10.1); CHLORIDE 104 MMOL/L (99-107); CREATININE 0.96 MG/DL (0.60-1.10); GLUCOSE 89 MG/DL (70-104); POTASSIUM 3.7 MMOL/L (3.5-5.1); SODIUM 137 MMOL/L (135-145); TOTAL PROTEIN 7.3 G/DL (6.4-8.2); eCRCL 72 ML/MIN; eGFR 76 ML/MIN
[2023-05-23] MEDS ORDERED: PRAM0.253 PO (08:33)
[2023-05-23] MEDS: docusate sod 100mg capsule PO SCH ×2 (08:41→19:26)
[2023-05-23] MEDS ORDERED: FLUT16SP2 BOTHNARES (10:15)
[2023-05-23] MEDS: cephalexin 500mg capsule PO SCH ×2 (15:20→19:25)
[2023-05-23] MEDS: sucralfate 1 gm tablet PO SCH ×2 (16:45→19:24)
[2023-05-23] MEDS: ciprofloxacin 250mg tablet PO SCH (19:26)
[2023-05-23] MEDS: magnesium oxide 400mg tablet PO SCH (19:26)
[2023-05-23] MEDS: pramipexole 0.25mg tablet PO SCH (19:27)
[2023-05-23] MEDS ORDERED: pramipexole 0.25mg tablet PO SCH (20:00)
[2023-05-23 20:01] LABS: BASOPHILS % (AUTO) 0.4 % (0-1); EOSINOPHILS # (AUTO) 0.5 X10'3 (0-0.9); EOSINOPHILS % (AUTO) 7.2 % (0-6); HEMATOCRIT 24.8 % (42.0-52.0); HEMOGLOBIN 8.3 g/dl (14.0-17.9); LYMPHOCYTES # (AUTO) 0.8 X10'3 (1.1-4.8); LYMPHOCYTES % (AUTO) 12.6 % (21-51); MEAN CORPUSCULAR HEMOGLOBIN 30.6 PG (27.0-31.0); MEAN CORPUSCULAR HGB CONC 33.4 g/dL (33.0-36.5); MEAN CORPUSCULAR VOLUME 91.4 FL (78-98); MEAN PLATELET VOLUME 6.7 FL (7.4-10.4); MONOCYTES # (AUTO) 0.8 X10'3 (0-0.9); MONOCYTES % (AUTO) 11.7 % (2-12); NEUTROPHILS # (AUTO) 4.6 X10'3 (1.8-7.7); NEUTROPHILS % (AUTO) 68.1 % (42-75); PLATELET COUNT 350 X10'3 (140-440); RED BLOOD COUNT 2.72 X10'6 (4.70-6.10); RED CELL DISTRIBUTION WIDTH 14.9 % (11.5-14.5); WHITE BLOOD COUNT 6.7 X10'3 (4.5-11.0)
[2023-05-24] VITALS (9 sets, daily range): BP systolic 109–136; BP diastolic 45–67; PULSE 78–97; RESP 16–20; TEMP 97–98.6; O2SAT 96–97
[2023-05-24] MEDS: pantoprazole 40MG/NS 100ML BAG 100 ML IV SCH ×5 (01:00→21:02)
[2023-05-24] MEDS: normal saline 1000ml 1,000 ML IV SCH ×4 (01:15→21:17)
[2023-05-24] MEDS ORDERED: aspirin 325mg tablet PO SCH (08:00)
[2023-05-24] MEDS ORDERED: non-formulary drug (Omeprazole (Prilosec) 1 CAP) PO SCH (08:00)
[2023-05-24] MEDS: sucralfate 1 gm tablet PO SCH ×4 (10:01→21:07)
[2023-05-24] MEDS: docusate sod 100mg capsule PO SCH ×2 (10:01→20:00)
[2023-05-24] MEDS: magnesium oxide 400mg tablet PO SCH ×2 (10:02→21:02)
[2023-05-24] MEDS: atorvastatin 10mg tablet PO SCH (10:02)
[2023-05-24] MEDS: multivitamins, therapeutics tablet PO SCH (10:02)
[2023-05-24] MEDS: cephalexin 500mg capsule PO SCH ×4 (10:02→21:03)
[2023-05-24] MEDS: ciprofloxacin 250mg tablet PO SCH ×2 (10:03→21:07)
[2023-05-24 11:56] LABS: BASOPHILS % (AUTO) 0.6 % (0-1); EOSINOPHILS # (AUTO) 0.5 X10'3 (0-0.9); EOSINOPHILS % (AUTO) 7.9 % (0-6); HEMATOCRIT 25.8 % (42.0-52.0); HEMOGLOBIN 8.6 g/dl (14.0-17.9); LYMPHOCYTES # (AUTO) 0.6 X10'3 (1.1-4.8); LYMPHOCYTES % (AUTO) 9.2 % (21-51); MEAN CORPUSCULAR HEMOGLOBIN 30.5 PG (27.0-31.0); MEAN CORPUSCULAR HGB CONC 33.2 g/dL (33.0-36.5); MEAN CORPUSCULAR VOLUME 91.9 FL (78-98); MEAN PLATELET VOLUME 6.2 FL (7.4-10.4); MONOCYTES # (AUTO) 0.6 X10'3 (0-0.9); MONOCYTES % (AUTO) 10.1 % (2-12); NEUTROPHILS # (AUTO) 4.6 X10'3 (1.8-7.7); NEUTROPHILS % (AUTO) 72.2 % (42-75); PLATELET COUNT 343 X10'3 (140-440); RED BLOOD COUNT 2.81 X10'6 (4.70-6.10); WHITE BLOOD COUNT 6.3 X10'3 (4.5-11.0)
[2023-05-24] MEDS: benzonatate 100mg capsule PO PRN ×2 (13:52→23:53)
[2023-05-24 19:59] LABS: BASOPHILS % (AUTO) 0.4 % (0-1); EOSINOPHILS # (AUTO) 0.5 X10'3 (0-0.9); EOSINOPHILS % (AUTO) 9.7 % (0-6); HEMATOCRIT 25.5 % (42.0-52.0); HEMOGLOBIN 8.5 g/dl (14.0-17.9); LYMPHOCYTES # (AUTO) 0.6 X10'3 (1.1-4.8); LYMPHOCYTES % (AUTO) 10.5 % (21-51); MEAN CORPUSCULAR HEMOGLOBIN 30.9 PG (27.0-31.0); MEAN CORPUSCULAR HGB CONC 33.3 g/dL (33.0-36.5); MEAN CORPUSCULAR VOLUME 92.7 FL (78-98); MEAN PLATELET VOLUME 6.6 FL (7.4-10.4); MONOCYTES # (AUTO) 0.7 X10'3 (0-0.9); MONOCYTES % (AUTO) 11.8 % (2-12); NEUTROPHILS # (AUTO) 3.7 X10'3 (1.8-7.7); NEUTROPHILS % (AUTO) 67.6 % (42-75); PLATELET COUNT 354 X10'3 (140-440); RED BLOOD COUNT 2.75 X10'6 (4.70-6.10); RED CELL DISTRIBUTION WIDTH 15.6 % (11.5-14.5); WHITE BLOOD COUNT 5.5 X10'3 (4.5-11.0)
[2023-05-24] MEDS: pramipexole 0.25mg tablet PO SCH (21:04)
[2023-05-25] MEDS: neomy sulf/bacitrac zn/polymixin b oint 14.2 gm tube TP SCH ×3 (00:48→13:00)
[2023-05-25] MEDS: pantoprazole 40MG/NS 100ML BAG 100 ML IV SCH ×3 (01:36→11:00)
[2023-05-25 02:00] VITALS: BP 127/61; PULSE 86; RESP 18; TEMP 97.6; O2SAT 95
[2023-05-25] MEDS: normal saline 1000ml 1,000 ML IV SCH ×2 (03:55→10:35)
[2023-05-25] MEDS: HYDROcodone/acetaminophen 5mg/325mg tablet PO PRN ×2 (05:04→14:37)
[2023-05-25 07:06] VITALS: BP 125/64; PULSE 83; RESP 17; TEMP 98.2; O2SAT 100
[2023-05-25 07:29] LABS: BASOPHILS % (AUTO) 0.4 % (0-1); EOSINOPHILS # (AUTO) 0.5 X10'3 (0-0.9); EOSINOPHILS % (AUTO) 8.9 % (0-6); HEMATOCRIT 25.6 % (42.0-52.0); HEMOGLOBIN 8.6 g/dl (14.0-17.9); LYMPHOCYTES # (AUTO) 0.7 X10'3 (1.1-4.8); LYMPHOCYTES % (AUTO) 14.1 % (21-51); MEAN CORPUSCULAR HGB CONC 33.7 g/dL (33.0-36.5); MEAN CORPUSCULAR VOLUME 91.9 FL (78-98); MEAN PLATELET VOLUME 6.5 FL (7.4-10.4); MONOCYTES # (AUTO) 0.6 X10'3 (0-0.9); NEUTROPHILS # (AUTO) 3.4 X10'3 (1.8-7.7); NEUTROPHILS % (AUTO) 64.6 % (42-75); PLATELET COUNT 330 X10'3 (140-440); RED BLOOD COUNT 2.78 X10'6 (4.70-6.10); RED CELL DISTRIBUTION WIDTH 15.3 % (11.5-14.5); WHITE BLOOD COUNT 5.3 X10'3 (4.5-11.0)
[2023-05-25 07:38] LABS: ALANINE AMINOTRANSFERASE 22 U/L (12-78); ALBUMIN 2.2 G/DL (3.4-5.0); ALBUMIN/GLOBULIN RATIO 0.4 (1.1-1.5); ALKALINE PHOSPHATASE 136 IU/L (46-116); ANION GAP 8 (8-16); ASPARTATE AMINO TRANSFERASE 31 U/L (10-37); BILIRUBIN,TOTAL 0.3 MG/DL (0.1-1.0); BLOOD UREA NITROGEN 12 MG/DL (7-18); BUN/CREATININE RATIO 12.4 (10.0-20.0); CALCIUM 8.5 MG/DL (8.5-10.1); CHLORIDE 105 MMOL/L (99-107); CREATININE 0.97 MG/DL (0.60-1.10); GLUCOSE 100 MG/DL (70-104); POTASSIUM 3.7 MMOL/L (3.5-5.1); SODIUM 139 MMOL/L (135-145); TOTAL CARBON DIOXIDE 26.4 MMOL/L (24-32); TOTAL PROTEIN 7.3 G/DL (6.4-8.2); eCRCL 71 ML/MIN; eGFR 75 ML/MIN
[2023-05-25] MEDS: atorvastatin 10mg tablet PO SCH (08:30)
[2023-05-25] MEDS: multivitamins, therapeutics tablet PO SCH (08:31)
[2023-05-25] MEDS: cephalexin 500mg capsule PO SCH ×2 (08:31→12:46)
[2023-05-25] MEDS: magnesium oxide 400mg tablet PO SCH (08:31)
[2023-05-25] MEDS: ciprofloxacin 250mg tablet PO SCH (08:31)
[2023-05-25] MEDS: sucralfate 1 gm tablet PO SCH ×2 (08:31→12:46)
[2023-05-25] MEDS: docusate sod 100mg capsule PO SCH (08:31)
[2023-05-25 10:39] VITALS: RESP 18
[2023-05-25 12:13] VITALS: BP 103/58; PULSE 86; RESP 17; TEMP 98.6; O2SAT 95
[2023-05-25 12:21] LABS: BASOPHILS % (AUTO) 0.8 % (0-1); EOSINOPHILS # (AUTO) 0.5 X10'3 (0-0.9); EOSINOPHILS % (AUTO) 9.9 % (0-6); HEMATOCRIT 26.7 % (42.0-52.0); HEMOGLOBIN 8.8 g/dl (14.0-17.9); LYMPHOCYTES # (AUTO) 0.8 X10'3 (1.1-4.8); LYMPHOCYTES % (AUTO) 15.5 % (21-51); MEAN CORPUSCULAR HEMOGLOBIN 30.7 PG (27.0-31.0); MEAN CORPUSCULAR HGB CONC 33.1 g/dL (33.0-36.5); MEAN CORPUSCULAR VOLUME 92.6 FL (78-98); MEAN PLATELET VOLUME 6.4 FL (7.4-10.4); MONOCYTES # (AUTO) 0.6 X10'3 (0-0.9); MONOCYTES % (AUTO) 12.2 % (2-12); NEUTROPHILS % (AUTO) 61.6 % (42-75); PLATELET COUNT 323 X10'3 (140-440); RED BLOOD COUNT 2.88 X10'6 (4.70-6.10); RED CELL DISTRIBUTION WIDTH 15.4 % (11.5-14.5); WHITE BLOOD COUNT 4.9 X10'3 (4.5-11.0)
[2023-05-25 14:37] VITALS: RESP 16
[2023-05-25] MEDS ORDERED: nystatin 15 GM powder TP SCH (20:00)
== END 2023-05-25 15:13 | DRG 378 ==
LOC: ER 20:17 → ED HOLD 22:35 → PCU 3S 05-23 00:12
PROVIDERS: ADMIT Family Medicine; ATTEND Internal Medicine
PROC: 30233N1 Transfusion of Nonautologous Red Blood Cells into Peripheral Vein, Percutaneous Approach (ICD-10-PCS; principal; 2023-05-23)
DX: K92.1 Melena (principal); D62 Acute posthemorrhagic anemia; I50.32 Chronic diastolic (congestive) heart failure; I11.0 Hypertensive heart disease with heart failure; N40.0 Benign prostatic hyperplasia without lower urinary tract symptoms; N18.9 Chronic kidney disease, unspecified; K59.00 Constipation, unspecified; N20.0 Calculus of kidney; K57.30 Diverticulosis of large intestine without perforation or abscess without bleeding; K29.80 Duodenitis without bleeding; K29.70 Gastritis, unspecified, without bleeding; K20.90 Esophagitis, unspecified without bleeding; K27.7 Chronic peptic ulcer, site unspecified, without hemorrhage or perforation; I27.20 Pulmonary hypertension, unspecified; G89.4 Chronic pain syndrome; G25.81 Restless legs syndrome; E88.09 Other disorders of plasma-protein metabolism, not elsewhere classified; E86.1 Hypovolemia; E78.5 Hyperlipidemia, unspecified; R09.02 Hypoxemia; Z96.651 Presence of right artificial knee joint; Z79.899 Other long term (current) drug therapy; Z88.0 Allergy status to penicillin
CPT/HCPCS: 36415; 36430; 71045; 74176; 80053; 83735; 83880; 84100; 85025; 85610; 85730; 86885; 86920; 87081; 97110; 97161; 97530; 99285; A4333; A6253; A6446; A6449; C9113; G0378; J7030; J7040; P9016

== ENCOUNTER 2023-07-07 16:47 | Inpatient (IN) | payer MEDICARE, OTHER ==
[~2023-07-07] VITALS: Ht 185.4 cm; Wt 89.5 kg
[~2023-07-07 16:47] MED LIST changes: +FLUT16SP2 BOTHNARES; -MELATONIN10 MG PO; +PANT-47 PO; +SENN-263 PO; +TEMA15CA5 PO; +VANC1FRO2
[2023-07-07 18:19] LABS: BASOPHILS % (AUTO) 0.2 % (0-1); EOSINOPHILS # (AUTO) 0.4 X10'3 (0-0.9); EOSINOPHILS % (AUTO) 3.1 % (0-6); HEMATOCRIT 38.8 % (42.0-52.0); HEMOGLOBIN 12.7 g/dl (14.0-17.9); LYMPHOCYTES # (AUTO) 1.1 X10'3 (1.1-4.8); LYMPHOCYTES % (AUTO) 8.3 % (21-51); MEAN CORPUSCULAR HEMOGLOBIN 28.7 PG (27.0-31.0); MEAN CORPUSCULAR HGB CONC 32.8 g/dL (33.0-36.5); MEAN CORPUSCULAR VOLUME 87.6 FL (78-98); MEAN PLATELET VOLUME 7.4 FL (7.4-10.4); MONOCYTES # (AUTO) 1.2 X10'3 (0-0.9); MONOCYTES % (AUTO) 9.1 % (2-12); NEUTROPHILS # (AUTO) 10.7 X10'3 (1.8-7.7); NEUTROPHILS % (AUTO) 79.3 % (42-75); PLATELET COUNT 343 X10'3 (140-440); RED BLOOD COUNT 4.43 X10'6 (4.70-6.10); RED CELL DISTRIBUTION WIDTH 14.7 % (11.5-14.5); WHITE BLOOD COUNT 13.5 X10'3 (4.5-11.0)
[2023-07-07] MEDS ORDERED: magnesium 2GM in 50ml NS 50 ML IV PRN (22:50)
[2023-07-07] MEDS ORDERED: HYDROcodone/acetaminophen 10/325mg tab PO PRN (22:50)
[2023-07-07] MEDS ORDERED: acetaminophen 325mg tablet PO PRN (22:50)
[2023-07-07] MEDS ORDERED: HYDROcodone/acetaminophen 5mg/325mg tablet PO PRN (22:50)
[2023-07-07] MEDS ORDERED: ondansetron/PF 4mg/2ml inj IV PRN (22:50)
[2023-07-07] MEDS ORDERED: potassium Cl 40MEQ/1/2NS 520ml 520 ML IV PRN (22:50)
[2023-07-07] MEDS ORDERED: magnesium Cl slow-release 64mg tablet PO PRN (22:50)
[2023-07-07] MEDS ORDERED: morphine 2 MG/ML inj. syringe IV PRN ×2 (22:50)
[2023-07-07] MEDS ORDERED: potassium Cl 20 mEq SR tablet PO PRN ×2 (22:50)
[2023-07-07] MEDS ORDERED: magnesium 4gm in 100ml NS 100 ML IV PRN (22:50)
[2023-07-07] MEDS ORDERED: magnesium hydroxide 30ml (MOM) UD suspension PO PRN (22:50)
[2023-07-07] MEDS ORDERED: mag hydrox/Alum hydrox/simeth 30ml oral suspension PO PRN (22:50)
[2023-07-07 23:00] VITALS: TEMP 98
[2023-07-08] MEDS ORDERED: OMEG-166 PO (03:30)
[2023-07-08] MEDS ORDERED: ONDA4TAB12 PO (03:30)
[2023-07-08] MEDS ORDERED: SAW/1TAB2 PO (03:30)
[2023-07-08] MEDS ORDERED: LACT1CAP86 PO (03:30)
[2023-07-08] MEDS ORDERED: PECT2.8L4 PO (03:30)
[2023-07-08] MEDS ORDERED: DOCU-148 PO (03:30)
[2023-07-08] MEDS ORDERED: AZIT-164 PO (03:30)
[2023-07-08] MEDS ORDERED: CETI10TA14 PO (03:30)
[2023-07-08] MEDS ORDERED: GUAI600T45 PO (03:30)
[2023-07-08] MEDS ORDERED: ACET650S13 RC (03:30)
[2023-07-08] MEDS ORDERED: [UNRECOGNIZED DRUG - CODE] PO (03:30)
[2023-07-08] MEDS ORDERED: LIPA1CAP18 PO (03:30)
[2023-07-08] MEDS ORDERED: METH-797 PO (03:30)
[2023-07-08] MEDS ORDERED: HYDR-3965 PO ×2 (03:30)
[2023-07-08] MEDS ORDERED: MAGN200T8 PO (03:30)
[2023-07-08] MEDS ORDERED: OXYC-658 PO (03:30)
[2023-07-08] MEDS ORDERED: PRAM0.129 PO (03:30)
[2023-07-08] MEDS ORDERED: pantoprazole 40mg Tablet.DR PO SCH (07:30)
[2023-07-08] MEDS ORDERED: K and/or MAG REPLACEMENT MC SCH (08:00)
[2023-07-08] MEDS ORDERED: atorvastatin 20mg tablet PO SCH (08:00)
[2023-07-08 08:20] LABS: BASOPHILS % (AUTO) 0.4 % (0-1); EOSINOPHILS # (AUTO) 0.6 X10'3 (0-0.9); EOSINOPHILS % (AUTO) 6.5 % (0-6); HEMATOCRIT 36.3 % (42.0-52.0); LYMPHOCYTES % (AUTO) 10.4 % (21-51); MEAN CORPUSCULAR HEMOGLOBIN 28.7 PG (27.0-31.0); MEAN CORPUSCULAR VOLUME 87.1 FL (78-98); MEAN PLATELET VOLUME 7.3 FL (7.4-10.4); MONOCYTES % (AUTO) 10.7 % (2-12); NEUTROPHILS # (AUTO) 6.7 X10'3 (1.8-7.7); PLATELET COUNT 319 X10'3 (140-440); RED BLOOD COUNT 4.16 X10'6 (4.70-6.10); RED CELL DISTRIBUTION WIDTH 14.7 % (11.5-14.5); WHITE BLOOD COUNT 9.3 X10'3 (4.5-11.0)
[2023-07-08 08:32] LABS: ALANINE AMINOTRANSFERASE 24 U/L (12-78); ALBUMIN 2.6 G/DL (3.4-5.0); ALBUMIN/GLOBULIN RATIO 0.5 (1.1-1.5); ALKALINE PHOSPHATASE 150 IU/L (46-116); ANION GAP 5 (8-16); ASPARTATE AMINO TRANSFERASE 23 U/L (10-37); BILIRUBIN,TOTAL 0.3 MG/DL (0.1-1.0); BLOOD UREA NITROGEN 22 MG/DL (7-18); BUN/CREATININE RATIO 23.7 (10.0-20.0); CALCIUM 9.2 MG/DL (8.5-10.1); CHLORIDE 103 MMOL/L (99-107); CREATININE 0.93 MG/DL (0.60-1.10); GLUCOSE 96 MG/DL (70-104); POTASSIUM 3.9 MMOL/L (3.5-5.1); SODIUM 137 MMOL/L (135-145); TOTAL CARBON DIOXIDE 28.7 MMOL/L (24-32); TOTAL PROTEIN 7.8 G/DL (6.4-8.2); eCRCL 74 ML/MIN; eGFR 79 ML/MIN
[2023-07-08 11:12] VITALS: BP 120/61; PULSE 86; RESP 18; O2SAT 95
[2023-07-08] MEDS ORDERED: tamsulosin 0.4mg capsule PO SCH (21:00)
== END 2023-07-08 21:20 | disposition home or self-care (01) | DRG 862 ==
LOC: ER 16:48 → ED HOLD 22:49
PROVIDERS: ADMIT Family Medicine; ATTEND Family Medicine
DX: T81.40XA Infection following a procedure, unspecified, initial encounter (principal); J18.9 Pneumonia, unspecified organism; M25.461 Effusion, right knee; N40.0 Benign prostatic hyperplasia without lower urinary tract symptoms; E78.5 Hyperlipidemia, unspecified; Z96.653 Presence of artificial knee joint, bilateral; G89.29 Other chronic pain; Y83.8 Other surgical procedures as the cause of abnormal reaction of the patient, or of later complication, without mention of misadventure at the time of the procedure; Z87.11 Personal history of peptic ulcer disease; Z79.899 Other long term (current) drug therapy; Z88.0 Allergy status to penicillin; Z91.041 Radiographic dye allergy status; Z91.040 Latex allergy status; Y92.89 Other specified places as the place of occurrence of the external cause
CPT/HCPCS: 36415; 73562; 80053; 85025; 85651; 86140; 99285; G0378

== ENCOUNTER 2024-08-12 05:46 | Day surgery (SDC) | payer MEDICARE, OTHER ==
[2024-08-12] VITALS (13 sets, daily range): BP systolic 89–130; BP diastolic 45–68; PULSE 51–69; RESP 13–16; TEMP 97.6; O2SAT 95–100
[~2024-08-12] VITALS: Ht 185.4 cm; Wt 93.0 kg
[2024-08-12] MEDS: ceFAZolin 2gm in dextrose, iso 50 ML IV ONE (05:30)
[~2024-08-12 05:46] MED LIST changes: +ALLER-CLEAR; -ASPI-1174 PO; -CEPH-585 PO; -CIPR750T14 PO; -FLUT16SP2 BOTHNARES; -GUAI120L55 PO; -KRIL1CAP21 PO; -LORA10CA PO; +MAGN200T8 PO; -MAGN400C PO; -METH-797 PO; -METR-159 PO; +OMEG-166 PO; -OMEP40CA21 PO; -ONDA-103 PO; +OXYC-658 PO; -OXYC5TAB2; -PANT-47 PO; +PRAM0.129 PO; -PRAM0.253 PO; +PRAM0.258 PO; -SENN-263 PO; -SULF1TAB45 PO; -TEMA15CA5 PO; -TRIA15CR62 TOP; -TURM500C4 PO; -VANC1FRO2; -VIT1LOZE5
[2024-08-12] MEDS ORDERED: BUPIVAcaine 2.5mg/ml inj 50ml vial (contains preservative) ONE (06:39)
[2024-08-12] MEDS ORDERED: triamcinolone acetonide 40mg/ml inj ONE (06:39)
[2024-08-12 07:04] LABS: BASOPHILS % (AUTO) 0.3 % (0-1); EOSINOPHILS # (AUTO) 0.3 X10'3 (0-0.9); EOSINOPHILS % (AUTO) 6.4 % (0-6); LYMPHOCYTES # (AUTO) 1.1 X10'3 (1.1-4.8); LYMPHOCYTES % (AUTO) 22.6 % (21-51); MEAN CORPUSCULAR HEMOGLOBIN 30.3 PG (27.0-31.0); MEAN CORPUSCULAR HGB CONC 33.6 g/dL (33.0-36.5); MEAN CORPUSCULAR VOLUME 90.3 FL (78-98); MEAN PLATELET VOLUME 7.3 FL (7.4-10.4); MONOCYTES # (AUTO) 0.7 X10'3 (0-0.9); MONOCYTES % (AUTO) 13.5 % (2-12); NEUTROPHILS # (AUTO) 2.8 X10'3 (1.8-7.7); NEUTROPHILS % (AUTO) 57.2 % (42-75); PRE OP HEMOGLOBIN 13.4 g/dL (14.0-17.9); PRE OP PLATELET COUNT 214 X10'3 (140-440); PRE OP WHITE BLOOD COUNT 4.9 10'3 (4.8-10.8); RED BLOOD COUNT 4.43 X10'6 (4.70-6.10); RED CELL DISTRIBUTION WIDTH 14.1 % (11.5-14.5)
[2024-08-12] MEDS: ringers solution, lacted 1,000 ML IV SCH (07:07)
[2024-08-12] MEDS: famotidine 20mg tablet PO ONE (07:07)
[2024-08-12 07:15] LABS: ALBUMIN 3.6 G/DL (3.4-5.0); ALBUMIN/GLOBULIN RATIO 0.9 (1.1-1.5); ALKALINE PHOSPHATASE 129 IU/L (46-116); BLOOD UREA NITROGEN 24 MG/DL (7-18); BUN/CREATININE RATIO 32.4 (10.0-20.0); CALCIUM 9.5 MG/DL (8.5-10.1); CHLORIDE 108 MMOL/L (99-107); CREATININE 0.74 MG/DL (0.60-1.10); PRE OP ALT 26 U/L (30-65); PRE OP ANION GAP 8 (8-16); PRE OP AST 26 U/L (10-37); PRE OP BILIRUB, TOTAL 0.4 MG/DL (0.0-1.0); PRE OP GLUCOSE 99 MG/DL (70-104); PRE OP SODIUM 142 MMOL/L (135-145); TOTAL CARBON DIOXIDE 25.7 MMOL/L (24-32); TOTAL PROTEIN 7.4 G/DL (6.4-8.2); eCRCL 91 ML/MIN; eGFR > 90 ML/MIN
[2024-08-12] MEDS ORDERED: proCHLORperazine 10 MG/2 ml inj IV PRN (07:15)
[2024-08-12] MEDS ORDERED: morphine 2 MG/ML inj. syringe IV PRN (07:15)
[2024-08-12] MEDS ORDERED: morphine 4 MG/ML inj SYRINge IV PRN (07:15)
[2024-08-12] MEDS ORDERED: meperidine/PF 25mg/ml syringe IV PRN (07:15)
[2024-08-12] MEDS ORDERED: sevoflurane 250ml liquid IH ONE (07:15)
[2024-08-12] MEDS ORDERED: ringers solution, lacted 1,000 ML IV SCH (07:15)
[2024-08-12] MEDS ORDERED: acetaminophen 1,000mg/100ml IV 100 ML IV PRN (07:15)
[2024-08-12] MEDS ORDERED: ondansetron/PF 4mg/2ml inj IV PRN (07:15)
[2024-08-12] MEDS ORDERED: HYDROmorphone/PF 0.2 MG/ML SYRINGE IV PRN ×2 (07:15)
[2024-08-12] MEDS ORDERED: LIDOcaine 1% 30ml preserv. free vial ONE (07:18)
[2024-08-12] MEDS ORDERED: propofol inj 20 ML IV ONE ×2 (07:36)
[2024-08-12] MEDS ORDERED: LIDOcaine 2% (20mg/ml) 5ml vial ONE (07:37)
[2024-08-12] MEDS ORDERED: dexamethasone sod phosphate 4mg/ml inj. ONE (07:38)
[2024-08-12] MEDS ORDERED: ondansetron/PF 4mg/2ml inj ONE (07:38)
[2024-08-12] MEDS: BUPIVAcaine/PF 2.5 mg/ml (0.25%) 30ml vial IJ ONE (07:50)
[2024-08-12] MEDS ORDERED: HYDROcodone/acetaminophen 10/325mg tab PO PRN (08:10)
== END 2024-08-12 09:07 | disposition home or self-care (01) ==
LOC: PAS 05:46
PROVIDERS: ATTEND Orthopaedic Surgery
DX: T84.82XA Fibrosis due to internal orthopedic prosthetic devices, implants and grafts, initial encounter (principal); M25.561 Pain in right knee; Z88.0 Allergy status to penicillin; Z91.09 Other allergy status, other than to drugs and biological substances; E78.5 Hyperlipidemia, unspecified; M19.011 Primary osteoarthritis, right shoulder; Z98.890 Other specified postprocedural states; Z79.899 Other long term (current) drug therapy; G47.33 Obstructive sleep apnea (adult) (pediatric); G47.30 Sleep apnea, unspecified; Z91.040 Latex allergy status
CPT/HCPCS: 27570; 36415; 80053; 82948; 85025; 93005; A4215; A4618; A6402; J0690; J1100; J2003; J2405; J2704; J3301; J3490; J7120; Z7506; Z7512; Z7610; A6449